=== PATIENT | male | born 1990 | race Caucasian/White ===

== ENCOUNTER 2024-08-13 00:01 | Emergency (ER) | payer OTHER ==
[~2024-08-13] VITALS: Ht 177.8 cm; Wt 100.7 kg
[2024-08-13 01:24] LABS: Source, Urine Clean Catch
[2024-08-13 01:37] LABS: Bilirubin, Urine Neg (Neg); Blood, Urine 5+ (Neg); Glucose Qualitative, Urine Neg (Neg); Ketones, Urine 1+ (Neg); Leukocyte Esterase, Urine 2+ (Neg); Nitrite, Urine Neg (Neg); Protein, Urine 4+ (Neg); Specific Gravity, Urine 1.025 (1.003-1.022); Urobilinogen, Urine 1+ (Normal)
[2024-08-13 01:44] LABS: Appearance, Urine Turbid (Clear); Color, Urine Red (P-Yellow)
[2024-08-13 01:45] LABS: Bacteria Mod /hpf; Red Blood Cells, Urine TNTC /hpf (0-2); Squamous Epithelial Cells Not Seen /hpf (Few)
== END 2024-08-13 01:45 | disposition left against medical advice (07) ==
LOC: ER 00:01
PROVIDERS: Student in an Organized Health Care Education/Training Program
DX: Z53.21 Procedure and treatment not carried out due to patient leaving prior to being seen by health care provider (principal)
CPT/HCPCS: 81001; 87086